=== PATIENT | female | born 1985 | race Caucasian/White ===

== ENCOUNTER 2020-10-26 20:46 | Observation (INO) | payer BC ==
[~2020-10-26] VITALS: Ht 165.1 cm; Wt 97.9 kg
[~2020-10-26 20:46] MED LIST: FOLIC ACID1 MG PO; IBUPROFEN800 MG PO; LORTAB 10-3251 EACH PO; NORCO 5-325 TA1 EACH PO; PRENATAL PLUS1 EAC2 PO
--- NOTE | 2020-10-27 03:20 | NUR ---
pt ARRIVES TO FLOOR VIA STRETCHER. PT IS AMBULATORY AND GOES TO TOILET TO VOID IMMEDIATELY UPON ARRIVAL. PT IS ALERT AND ORIENTED X4. VSS. PT REPORTS PAIN 5/10 IN RUQ. WILL PROVIDE PRN PAIN MEDS SOON ORDERS COME IN. PT'S ACCOMPANIED PT TO ROOM. CHARGE NURSE QI IN ROOM FOR MEDICAL HISTORY.
--- NOTE | 2020-10-27 03:50 | NUR ---
ASSESSMENT COMPLETE. 0.5MG IV PRN DILAUDID PROVIDED AT THIS TIME. PT HAS IVF INFUSING PER ORDER. MOUTH SWAB PROVIDED PT IS NPO. PT EDUCATED LOADER OPERATOR/GROUND LEADER LIGHT AND ORIENTED TO ROOM. PT DENIES FURTHER NEEDS A THIS TIME.
--- NOTE | 2020-10-27 06:00 | NUR ---
SBA TO THE BATHROOM.
--- NOTE | 2020-10-27 06:31 | NUR ---
pt had been up to bathroom. requests prn pain meds for 7/10 abdominal pain. 0.5mg prn dilaudid administered. pt denies further needs. call light within reach.
--- NOTE | 2020-10-27 07:35 | NUR ---
REPORT RECIEVED FROM NIGHT RN, AARON. PATIENT HAS LR ON STRAIGHT TUBING FOR SURGERY. PRE-PROCEDURE CHECKLIST STARTED. EKG ORDERED AND RT NOTIFIED. PATIENT REPORTS THAT SHE IS COMFORTABLE AT THIS TIME AND DOES NOT REQUIRE PAIN MEDICATIONS.
--- NOTE | 2020-10-27 08:27 | NUR ---
PT AWAKE IN ROOM AND INDEPENDENT WITH BATHROOM. WHITE BOARD UPDATED. WARM CLOTH GIVEN FOR FACE. PT EXPRESSES NAUSEA AND PAIN.JESUS MANUEL LOYA NOTIFIED. CALL LIGHT WITHIN REACH. NO FURTHER NEEDS AT THIS TIME.
--- NOTE | 2020-10-27 09:00 | NUR ---
MORNING ASSESSMENT DONE. PATIENT IS READY FOR SURGERY. IV FLAGYL (2 BAG DOSE) STARTED. IV ROCEPHIN AT BEDSIDE. IVF CHANGED TO D5LR @ 100ML/HR. PATIENT GIVEN 1MG IV DILAUDID FOR 8/10 ABD PAIN. PATIENT GIVEN 8MG TOTAL OF ZOFRAN FOR NAUSEA. PATIENT IS NOW RESTING COMFORTABLY, ALL OTHER MORNING MEDICATIONS GIVEN. SCD'S ARE ON.
--- NOTE | 2020-10-27 09:40 | NUR ---
Spoke with Alba. She lives in [place] with her spouse and 2 child juan a. She is active and healthy, except for her gallbladder. She does not use any DME and drives. Plans on dc to home with spouse and kids. Spouse is starting his week vacation today, so will be home with her.
--- NOTE | 2020-10-27 10:43 | NUR ---
PATIENT TO SURGERY WITH JESUS MANUEL DAMICO, AT APPROXIMATELY 1000.
--- NOTE | 2020-10-27 12:39 | NUR ---
10/27/20 1239 Sheets,Allyssa 1232 PT ARRIVED TO PACU ON 6L VIA MASK, RESP EVEN AND UNLABORED. ORAL AIRWAY IN PLACE. VSS.
--- NOTE | 2020-10-27 12:41 | CONS ---
[facility] [address] [place], [place] [address] Signed DATE OF CONSULTATION: 10/27/2020 CHIEF COMPLAINT: Right upper quadrant abdominal pain. HISTORY OF PRESENT ILLNESS: Nikki is a 35-year-old obese female, who yesterday developed rather significant acute right upper quadrant abdominal pain radiating through to her back. She was nauseated. She told me her dad had a similar pain and ended up with his gallbladder out. She decided to come to the emergency room for evaluation. White count was borderline up at 11.8. Liver function tests are fine. Beta-hCG is negative. COVID is negative. She was tender in the right upper quadrant. Ultrasound showed gallstones with hydropic gallbladder. She had a positive Garcia's sign. Common bile duct is unremarkable 5 mm. Therefore, I was asked to admit her as a general surgeon on-call. She has been admitted overnight and hydrated. PAST MEDICAL HISTORY: Chronic interstitial cystitis, mitral valve prolapse followed by Dr. Sim. PAST SURGICAL HISTORY: D and C, laparoscopic hysterectomy with Dr. Woodruff for endometriosis. SOCIAL HISTORY: She does not smoke or drink. She uses the [facility] as needed. She has 2 children. She is a homemaker. She is to [place] at [phone]. FAMILY HISTORY: None. REVIEW OF SYSTEMS: She had 10 systems reviewed. The pertinent positives have been included. ALLERGIES: Oxycodone causes vomiting. Vicodin causes pruritus. MEDICATIONS: None. PHYSICAL EXAMINATION: VITAL SIGNS: Her blood pressure is 123/83, heart rate 76, respiratory rate 16, her temperature is 97.4. She is 100% on room air. She is 5 feet 5 inches at 97 kg. GENERAL: Nikki is a 35-year-old female, who generally appears healthy and at her stated age. She is not systemically ill or toxic. She is not jaundiced. Electronically Signed By: SHANA YANEZ MD 10/27/20 1241 PATIENT NAME: NIKKI ESTRELLA CONSULTATION DATE OF : 87 REPORT #: [id number] PHYSICIAN: SHANA YANEZ MD PCP: NO PRIMARY CARE PHYSICIAN REPORT IS CONFIDENTIAL AND NOT TO BE RELEASED WITHOUT AUTHORIZATION [facility] [address] [place] [id number] Signed LUNGS: Clear to auscultation bilaterally. HEART: Regular rate and rhythm without murmurs. ABDOMEN: Obese, but soft. She is tender in the right upper quadrant just a little bit lateral. LABORATORY DATA: Her white blood cell count is 11.8, hemoglobin 14, neutrophils 75. Electrolytes unremarkable. Total bilirubin 0.3, AST 18, ALT 38, alkaline phosphatase 48, albumin 4.4, lipase 32. Beta-hCG negative. COVID is negative. RADIOGRAPHIC STUDIES: Ultrasound is reviewed and she has hydropic gallbladder with gallstones and a positive Garcia sign, but an unremarkable common bile duct at 5 mm. ASSESSMENT AND PLAN: Nikki is a 35-year-old female, who presents with acute cholecystitis cholelithiasis. She has been admitted, given IV fluids and we will start some antibiotics. I will talk to the OR crew and we will see if we can get this done in the middle of the day. If not, we will have to do that at the end of the schedule today. I did review the location and function of the gallbladder with Nikki. She understands the difference between laparoscopic and open cholecystectomy. We reviewed the risks including, but not limited to bleeding, infection, scarring, change in contour of the skin, damage to bowel, damage to main bile duct, incisional hernias, and other unforeseen comorbidities. She had expressed understanding and wished to proceed. Shana Yanez MD ALB/MODL /[id number] cc: Chart Filed Incomplete [facility] Shana Yanez MD Copies: CHART FILED INCOMPLETE Electronically Signed By: SHANA YANEZ MD 10/27/20 1241 PATIENT NAME: NIKKI ESTRELLA CONSULTATION DATE OF : 87 REPORT #: [id number] PHYSICIAN: SHANA YANEZ MD PCP: NO PRIMARY CARE PHYSICIAN REPORT IS CONFIDENTIAL AND NOT TO BE RELEASED WITHOUT AUTHORIZATION [address] [address] Signed SHANA YANEZ MD ~ Electronically Signed By: SHANA YANEZ MD 10/27/20 1241 PATIENT NAME: DELORESNIKKI CONSULTATION DATE OF : 87 REPORT #: [id number] PHYSICIAN: SHANA YANEZ MD PCP: NO PRIMARY CARE PHYSICIAN REPORT IS CONFIDENTIAL AND NOT TO BE RELEASED WITHOUT AUTHORIZATION
--- NOTE | 2020-10-27 13:00 | NUR ---
PT appeared to be sleeping. Lights were all off and curtain was closed. Did not disturb pt but did pray from hallway.
[2020-10-27] MEDS ORDERED: DILAUDID4 MG PO (14:12)
--- NOTE | 2020-10-27 14:15 | NUR ---
PATIENT RETURNED FROM SURGERY, NAUSEATED, VOIDED, GIVEN INAPSINE FOR NAUSEA AND IS NOW SLEEPING. VSS, IVF RESUMED, ASSESSMENT DONE, X4 SCOPE SITES INTACT WITH GUAZE/TAPE AND NO DRAINAGE NOTED.
--- NOTE | 2020-10-27 15:10 | NUR ---
SECOND POST OP VITALS GIVEN. PATIENT AMBULATED UNASSISTED TO BATHROOM TO VOID 400ML OF URINE AND TOLERATED ACTIVITY WELL. PATIENT BACK TO BED, SALINE LOCKED. ICE CHIPS, ICE WATER AND CRACKERS GIVEN. PATIENT REPORTS PAIN IS 5-6/10 AND FALLS QUICKLY BACK TO SLEEP.
--- NOTE | 2020-10-27 15:45 | NUR ---
REPORT RECEIVED FROM DARIAN, JESUS MANUEL, THIS RN ASSUMING CARE OF PT. PT RESTING IN BED WTH HEAD OF BED ELEVATED TO 36 DEGREES. PT REPORTS 4/10 PAIN IN ABODMEN AND STATES SHE IS READY TO TRY A PAIN PILL. PT ABLE TO EAT CRACKERS AND JELLO. REPORTS NAUEA HAS IMPROVED NOW AT 2/10. SEE MAR FOR PAIN MEDICATION GIVEN. DRESSINGS ALL C/D/I WITH NO DRAINAGE NOTED. VITAL SIGNS STABLE. CALL LIGHT WITHIN REACH. BED RAILS UP. HAS RETURNED TO BEDSIDE AND STATES HE WAS ABLE TO FILL RX.
--- NOTE | 2020-10-27 16:03 | NUR ---
STAND BY ASSIST UP TO RESTROOM. PT VOIDS 300ML CLEAR YELLOW URINE WITH OUT ISSUE. STAND BY ASSIST BACK TO BED. PT DENIES ADDITIONAL REQUESTS OR COMPLAINTS. CALL LIGHT WITHIN REACH. BED RAILS UP.
--- NOTE | 2020-10-27 16:41 | NUR ---
THIS RN TO ROOM TO CHECK ON PT. PT REPORTS NAUSEA HAS RESOLVED. PT TOLERATING PO WATER, JELLO AND CRACKERS. PT STATES PAIN HAS IMPROVED, NOW 03/30. DRESSINGS TO ABDOMEN C/D/I WITH NO DRAINAGE NOTED. PT VOIDING QUANTY SUFFICENT AND STAEDY ON FEET WITH AMBULATION. PT STATES SHE IS READY TO GO HOME. DISCHARGE INSTRUCTIONS PRINTED AND REVIEWED WITH PT. PT VERBALIZES UNDERSTANDING OF INSTRUCTIONS, MEDICATIONS, FOLLOW UP AND INFECTION PREVENTION. PT DRESSING SELF WITH ASSITNACE FROM . NO ADDITIONAL NEEDS AT THIS TIME.
--- NOTE | 2020-10-27 17:06 | OR ---
[facility] [address], [place] [address] Signed DATE OF OPERATION: 10/27/2020 SURGEON: Shana Quiroz MD PREOPERATIVE DIAGNOSES: Acute cholecystitis and cholelithiasis. POSTOPERATIVE DIAGNOSES: 1. Acute cholecystitis and cholelithiasis. 2. Cholesterolosis. PROCEDURES: Laparoscopic cholecystectomy without intraoperative cholangiogram. ESTIMATED BLOOD LOSS: None. FINDINGS: Nikki had one large stone in the neck of her gallbladder. She did have edema of the gallbladder wall. She had significant cholesterolosis. The intraoperative cholangiocatheter passed into the duct we never could get past the valves of Heister again. Therefore, the intraoperative cholangiogram was not performed. INDICATIONS: Nikki is a 35-year-old female at 5 feet 5 inches, 97 kg. A day ago, she was having significant right upper quadrant abdominal pain with nausea. She came to emergency room for evaluation. Her white count was borderline 11.8. Liver function tests and lipase were negative. Beta-hCG was negative. COVID test was negative. Ultrasound of the gallbladder showed a stone with hydropic gallbladder and a positive Garcia's sign. Common bile duct was unremarkable at 5 mm. I was asked to admit her last night as a general surgeon on-call. This morning, I met with Nikki and reviewed the above findings. We discussed the location of function of the gallbladder. We discussed laparoscopic versus open cholecystectomy. We discussed the expected intraop and postop course. She understands there is risk including, but not limited to bleeding, infection, scarring, change in contour of the skin, damage to bowel, damage to main bile duct, incisional hernias and other unforeseen comorbidities. She had expressed and understanding wished to proceed. PROCEDURE NOTE: Nikki was taken into our operating room and placed in a supine position under general Electronically Signed By: SHANA QUIROZ MD 10/27/20 4696 PATIENT NAME: NIKKI ESTRELLA OPERATIVE REPORT DATE OF : 87 REPORT #: [id number] PHYSICIAN: SHANA QUIROZ MD PCP: NO PRIMARY CARE PHYSICIAN REPORT IS CONFIDENTIAL AND NOT TO BE RELEASED WITHOUT AUTHORIZATION [facility] [address], [place] [address] Signed endotracheal tube anesthesia. She was given preoperative antibiotics along with subcutaneous heparin. SCDs were utilized. She was then prepped and draped in the usual sterile fashion. All trocars were placed in usual positions under direct visualization of camera without difficulty. We took pictures throughout for photodocumentation. The findings were as above. The gallbladder was grasped and elevated in the right upper quadrant. The triangle of Calot was dissected free. We placed a clip and a PDS Endoloop on the cystic artery. We then had inserted the intraoperative cholangiocatheter into the cystic duct. Unfortunately, it came dislodged and we were never able to reinsert the intraoperative cholangiocatheter into the cystic duct. We therefore placed a PDS Endoloop on the cystic duct and two clips were placed across the cystic duct stump to obey its location. After this, the gallbladder was carefully and slowly removed from the gallbladder fossa with the help of cautery and placed into an EndoCatch bag. The right upper quadrant was irrigated and suctioned out until clear. We used our laparoscopic suturing device to pass 0-Vicryl suture on either side of the fascia of the subxiphoid trocar site. This was tied down to close this fascia primarily. After this, all the gas was allowed to escape and all the trocars were removed. We gave the gallbladder to our circulating nurse. The gallbladder was opened on the back table for photodocumentation. There was a single large stone with significant cholesterolosis and edema of the gallbladder wall. We then closed the fascia of the supraumbilical trocar site with interrupted [id number] and simple 0-Vicryl sutures. Local anesthetic was copiously injected into all trocar sites. Each trocar site was irrigated and suctioned out until clear. The skin and dermis of each trocar site were closed with interrupted 3-0 subcuticular Monocryl sutures. Dry gauze and tape were applied to all incisions. After this, Nikki was awakened from her anesthesia, extubated in the OR, and taken to the recovery room in stable condition. Shana Quiroz MD ALB/MODL /[id number] cc: [facility] Shana Quiroz MD Electronically Signed By: SHANA QUIROZ MD 10/27/20 1706 PATIENT NAME: NIKKI ESTRELLA OPERATIVE REPORT DATE OF : 87 REPORT #: [id number] PHYSICIAN: SHANA QUIROZ MD PCP: NO PRIMARY CARE PHYSICIAN REPORT IS CONFIDENTIAL AND NOT TO BE RELEASED WITHOUT AUTHORIZATION [place] [address] [place], [place] [address] Signed Copies: SHANA QUIROZ MD ~ Electronically Signed By: SHANA QUIROZ MD 10/27/20 1706 PATIENT NAME: NIKKI ESTRELLA OPERATIVE REPORT DATE OF : [birth year] REPORT #: [id number] PHYSICIAN: SHANA QUIROZ MD PCP: NO PRIMARY CARE PHYSICIAN REPORT IS CONFIDENTIAL AND NOT TO BE RELEASED WITHOUT AUTHORIZATION
--- NOTE | 2020-10-27 17:10 | NUR ---
PT DRESSED AND READY FOR DISCHARGE. PT STATES ALL HER QUESTIONS ARE ANSWERED. PT TRANSFERS SELF TO WHEELCHAIR. PT WHEELED FROM MED/SURG. NO ADDITIONAL REQUESTS OR CONCERNS.
--- NOTE | 2020-10-28 18:00 | PATH ---
[facility] [address] [place], [place] [address] Signed SPECIMEN(S): A GALLBLADDER WITH STONE SPECIMEN SOURCE: A. GALLBLADDER WITH STONE CLINICAL HISTORY: Acute cholecystitis, stones. FINAL PATHOLOGIC DIAGNOSIS: Gallbladder, cholecystectomy: - Chronic cholecystitis. - Cholelithiasis. - Cholesterolosis. - No evidence of neoplasia. ANDRESK:dillan:C2NR MICROSCOPIC EXAMINATION: Histologic sections of all submitted blocks are examined by light microscopy. These findings, together with the gross examination, support the pathologic diagnosis. GROSS DESCRIPTION: The specimen, labeled "RC, gallbladder," is received in formalin and consists of Specimen: Previously opened gallbladder. Dimensions: 8.2 cm in length and 5.0 cm in inner circumference. Serosa: Violaceous and smooth. Cystic Duct: Unobstructed. Calculi: One green gallstone within the container that measures 2.1 cm in greatest dimension. Mucosa: [place]-danielson and velvety. Wall thickness: 0.3 cm. Lymph node: No pericystic lymph nodes are grossly identified. Additional: None. Certified Nurse Practitioner sections are submitted in cassette (A1). JS (under the direct supervision of a pathologist) The Gross Description was prepared using a voice recognition system. The report was reviewed for accuracy; however, sound-alike word errors, addition and/or deletions may occur. If there is any question about this report, please contact Client Services. PATIENT NAME: NIKKI ESTRELLA PATHOLOGY DATE OF : [birth year] REPORT #: [id number] PHYSICIAN: SHAWN PATHOLOGY PCP: NO PRIMARY CARE PHYSICIAN REPORT IS CONFIDENTIAL AND NOT TO BE RELEASED WITHOUT AUTHORIZATION [facility] [address] [facility] [place] [place] [address] Signed PERFORMING LABORATORY: The technical component was performed by [employer], [address] [place] [id number] ([employer]: Pam Viera MD; CLIA# [id number]). [facility] [address] [place] [address]. Diagnostician: Brandon Miranda MD Pathologist Electronically Signed 10/28/2020 Copies: ~ PATIENT NAME: NIKKI ESTRELLA PATHOLOGY DATE OF : 87 REPORT #: [id number] PHYSICIAN: SHAWN ZHU PCP: NO PRIMARY CARE PHYSICIAN REPORT IS CONFIDENTIAL AND NOT TO BE RELEASED WITHOUT AUTHORIZATION
--- NOTE | 2020-10-28 18:38 | EKG ---
[facility] [address] [facility] [place], [place] [address] Signed Normal sinus rhythm with sinus arrhythmia Normal ECG When compared with ECG of 06-MAY-2017 14:11, No significant change was found Confirmed by SUKH MONTES DE OCA DO ([id number]) on 10/28/2020 6:38:00 PM Electronically Signed By: SUKH MONTES DE OCA DO 10/28/20 1838 PATIENT NAME: NIKKI ESTRELLA Electrocardiogram DATE OF : 87 PHYSICIAN: SUKH MONTES DE OCA DO REPORT #: [id number] REPORT IS CONFIDENTIAL AND NOT TO BE RELEASED WITHOUT AUTHORIZATION
== END 2020-10-27 17:10 | disposition home or self-care (01) ==
LOC: ED 20:46 → MS 20:47
PROVIDERS: ADMIT Colon & Rectal Surgery; ATTEND Colon & Rectal Surgery
PROC: BF03YZZ Plain Radiography of Gallbladder and Bile Ducts using Other Contrast (ICD-10-PCS; 2020-10-27)
PROC: 0FT44ZZ Resection of Gallbladder, Percutaneous Endoscopic Approach (ICD-10-PCS; principal; 2020-10-27 11:00)
DX: K80.12 Calculus of gallbladder with acute and chronic cholecystitis without obstruction (principal); Z88.5 Allergy status to narcotic agent; Z20.822 Contact with and (suspected) exposure to COVID-19
CPT/HCPCS: 00790; 76705; 80053; 81001; 83690; 84703; 85025; 93005; 93010; 96374; 96375; 96376; 99285-25; C9113; C9803; G0378; J0131; J0696; J1100; J1170; J1650; J1790; J1885; J2405; J2550; J2704; J3475; J7030; J7121; U0003

== ENCOUNTER 2021-04-24 14:19 | Emergency (ER) | payer BC ==
[~2021-04-24] VITALS: Ht 165.1 cm; Wt 99.8 kg
[~2021-04-24 14:19] MED LIST changes: +DILAUDID4 MG PO
[2021-04-24] MEDS ORDERED: VANCOCIN HCL250 MG PO (15:01)
[2021-04-24] MEDS ORDERED: ONDANSETRON ODT8 MG PO (18:42)
[2021-04-24] MEDS ORDERED: PROMETHAZINE HC25 M1 PO (18:42)
== END 2021-04-24 18:55 | disposition home or self-care (01) ==
LOC: ED 14:19
DX: A04.72 Enterocolitis due to Clostridium difficile, not specified as recurrent (principal); Z88.5 Allergy status to narcotic agent; Z79.899 Other long term (current) drug therapy
CPT/HCPCS: 36415; 80053; 83735; 85025; 96374; 96375; 96376; 99284-25; J1790; J2405; J2765; J7030